=== PATIENT | male | born 1950 | race Caucasian/White ===

== ENCOUNTER 2016-05-31 15:43 | Emergency (ER) | payer MEDICARE, BC ==
[2016-05-31] MEDS ORDERED: NORMAL SALINE 1,000 ML IV ONE (16:33)
[2016-05-31] MEDS ORDERED: ONDANSETRON HCL/PF 2 MG/ML VIAL IV ONE ×2 (16:34→18:10)
[2016-05-31] MEDS ORDERED: ONDANSETRON HCL/PF 2 MG/ML VIAL ONE ×2 (16:34→18:12)
--- NOTE | 2016-05-31 16:41 | ERNOTE ---
Medical Problem HPI - Narrative Date of Service: 05/31/16 - General Chief Complaint: Nausea/Vomiting Time Seen by Provider: 05/31/16 16:30 Source: patient, family - , RN notes reviewed Exam Limitations: no limitations - Immun/Allergies/Home Medications Immunizations: IMMUNIZATION HX History of Influenza Vaccine Yes Allergies/Adverse Reactions: Allergies amoxicillin [Amoxicillin] Adverse Reaction (Mild, Verified 05/31/16 16:05) does not work azithromycin [From Zithromax Z-Ajith] Adverse Reaction (Mild, Verified 05/31/16 16 :05) does not work Home Medications: HOME MEDICATIONS Diclofenac Sodium [Voltaren] 50 mg PO DAILY 07/03/14 [Last Taken Unknown] Omeprazole 40 mg PO DAILY #14 capsule. 05/31/16 [Last Taken Unknown] Promethazine HCl [Phenergan] 25 mg PO Q6H PRN #14 tablet 05/31/16 [Last Taken Unknown] - History of Present History Narrative: Patient's been having diarrhea and vomiting since yesterday. He's had multiple watery episodes of diarrhea yesterday. They he's had 3 episodes of vomiting and then to yesterday. Denies any fever or denies any abdominal pain denies any chest pain. Just feels very weak and tired not able to hold anything down. Denies any chest pain. No headache Date (Duration): 05/30/16 Timing: constant Review of Systems - Review of Systems Constitutional: Absent: fever, chills, diaphoresis EYE: Absent: eye discharge Respiratory: Absent: shortness of breath - lives with Down's of a central line Cardiology: Absent: chest pain, palpitations Gastrointestinal/Abdominal: Present: nausea, vomiting, diarrhea, eating less, drinking less. Absent: constipation, abdominal pain All Other Systems: All systems neg except as marked - Patient's Past Medical History Patient History - Medical: GERD, Osteoarthritis Patient History - Cancer: No Hx of Cancer Patient History - Surgical Procedures: Total Hip Replacement, Other - Social History Living Situations: home Smoking Status: Never smoker Alcohol Use: heavy Drug Use: none Physical Exam - Physical Exam General Appearance: Present: wd/wn, alert, no apparent distress Ears, Nose, Throat: Present: normal ENT inspection, hearing grossly normal Neck: Present: normal inspection, nontender, supple Respiratory: Present: no respiratory distress, normal breath sounds, no accessory muscle use, chest nontender, lungs clear Cardiovascular/Chest: Present: regular rate, rhythm, no murmur, normal peripheral pulses Gastrointestinal/Abdominal: Present: normal bowel sounds, nontender, nondistended, soft, no organomegaly Extremity Exam: Present: normal inspection, non-tender, no edema, normal range of motion Neurological Exam: Present: alert, oriented, normal mood/affect, no motor/ sensory deficits Skin Exam: Present: normal color, warm/dry Lymphatic Exam: Present: no adenopathy ED Progress - Results and Orders Patient's Lab Results:: I have reviewed the patient's lab results. - Vital Signs Patient's Vital Signs:: I have reviewed the patient's vital signs. Vital Signs: Vital Signs 05/31/16 05/31/16 16:02 16:30 Temperature 37 C Pulse Rate 98 95 Respiratory 12 14 Rate Blood Pressure 148/87 146/68 O2 Sat by Pulse 98 96 Oximetry - X-Ray X-Ray #1 X-Ray: abdomen - no acute changes abnormal gas pattern distended bowel loops no evidence of bowel structures Interpretation: Reviewed by me - CT/Ultrasound CT/Ultrasound Narrative: IMPRESSION: 1. Nonspecific loops of bowel can be seen in enteritis. Otherwise no acute intra-abdominal or pelvic process. - Progress/Reassessment Chief Complaint: Nausea/Vomiting - Transfer of Care Expected Disposition: Discharge Departure - Departure Clinical Impression: Gastroenteritis, Gastroenteritis and colitis, viral Disposition: Home Follow Up Needed Condition: Good Instructions: Viral Gastroenteritis, Adult, [id number] Prescriptions: Omeprazole 40 mg PO DAILY #14 capsule. Promethazine HCl [Phenergan] 25 mg PO Q6H PRN #14 tablet PRN Reason: Vomiting
[2016-05-31 16:55] LABS: Hematocrit 48.7 % (42.0-52.0); Hemoglobin 16.3 gm/dL (13.5-18.0); Mean Cell Volume 91.2 fl (78-100); Mean Corpuscular Hemoglobin 30.5 pg (27-31); Mean Corpuscular Hgb Conc 33.5 g/dl (32-36); Neutrophil # 10.8 K/mm3 (1.3-6.0); Neutrophil % 89.5 % (42-75.0); Platelet Count 272 K/mm3 (150-450); Red Blood Count 5.34 M/mm3 (4.7-6.0); Red Cell Distribution Width 13.4 % (11.5-14.0); White Blood Count 12.1 K/mm3 (4.0-10.5)
[2016-05-31] MEDS ORDERED: PANTOPRAZOLE SODIUM 40 MG in NORMAL SALINE 100 ML IV ONE (16:58)
[2016-05-31] MEDS ORDERED: PANTOPRAZOLE SODIUM 40 MG/100 ML PIGGYBACK IV ONE (17:02)
[2016-05-31 17:08] LABS: Albumin * 4.1 gm/dl (3.4-5.0); Anion Gap 14.1 mmol/L (6.8-13.8); BUN/Creatinine Ratio 15.1 (9.0-21.6); Bilirubin, Total 0.9 mg/dL (0.0-1.1); CRP 7.2 mg/dL (0.0-0.9); Ca. Corrected For Albumin 9.1 mg/dL (8.4-10.2); Calcium * 9.5 mg/dL (7.9-10.9); Carbon Dioxide 26.7 mmol/L (24-32.6); Potassium 3.8 mmol/L (3.4-4.6); Total Protein 8.1 gm/dL (6.2-8.2)
[2016-05-31 18:57] LABS: Urine Appearance Slightly Cloudy; Urine Bilirubin Negative (NEGATIVE); Urine Blood Negative /ul (NEGATIVE); Urine Color Yellow; Urine Ketone 15 mg/dL (NEGATIVE); Urine Nitrite Negative (NEGATIVE); Urine Protein 30 mg/dL (NEGATIVE); Urine Urobilinogen Normal (NORMAL); Urine pH 5.5 pH (5.0-7.0)
[2016-05-31 18:58] LABS: Urine Bacteria None Seen; Urine RBC None Seen /hpf (0-5); Urine WBC 0-5 /hpf (0-5)
[2016-05-31] MEDS ORDERED: METOCLOPRAMIDE HCL 5 MG/ML VIAL IV ONE (19:20)
[2016-05-31] MEDS ORDERED: MAG HYDROX/ALUMINUM HYD/SIMETH 30 ML UDC PO ONE (19:22)
[2016-05-31] MEDS ORDERED: LIDOCAINE HCL 20 ML UDC PO ONE (19:22)
[2016-05-31] MEDS ORDERED: SUCRALFATE 1 G/10 ML UDC PO ONE (19:22)
[2016-05-31] MEDS ORDERED: BELLADONNA ALKALOIDS/PHENOBARB 60 ML BTL PO ONE (19:22)
[2016-05-31] MEDS ORDERED: METOCLOPRAMIDE HCL 5 MG/ML VIAL ONE (19:23)
[2016-05-31 20:10] VITALS: BP 145/84
== END 2016-05-31 19:50 | disposition home or self-care (01) ==
LOC: ER 15:43
DX: A08.4 Viral intestinal infection, unspecified (principal); K52.9 Noninfective gastroenteritis and colitis, unspecified